=== PATIENT | female | born 1995 | race Caucasian/White ===

== ENCOUNTER 2020-05-01 12:46 | Emergency (ER) | payer OTHER ==
[~2020-05-01 12:46] MED LIST: FLOVENT 220.1 GM/INH INH; NASONEX17 GM; OMNICEF 300 MG300 MG PO; PROAIR DIGIHAL90 MCG INH; ZITHROMAX250 MG PO
== END 2020-05-01 13:48 | disposition home or self-care (01) ==
LOC: ER1 12:46
DX: S61.213A Laceration without foreign body of left middle finger without damage to nail, initial encounter (principal); W25.XXXA Contact with sharp glass, initial encounter; Y92.009 Unspecified place in unspecified non-institutional (private) residence as the place of occurrence of the external cause
CPT/HCPCS: 12001; 99283

== ENCOUNTER → 2021-10-11 | Outpatient (CLI) | payer OTHER | LOC: MAMO 13:11 | DX: N64.4 Mastodynia (principal) | CPT/HCPCS: 76641-LT; 77065; G0279 ==